=== PATIENT | male | born 1980 | race Asian ===

== ENCOUNTER 2019-09-16 21:24 | Emergency (ER) | payer OTHER ==
--- NOTE | 2019-09-16 22:10 | ED Physician Documentation ---
PD HPI URI - Stated complaint Stated Complaint: COUGH, FEVER - Chief complaint Chief Complaint: Fever - History obtained from History obtained from: Patient - History of Present Illness Timing - onset: Yesterday Timing duration: Days (2) Timing details: Abrupt onset, Still present Associated symptoms: Fever, Chills, Nasal congestion, Dry cough, Dyspnea (mild), Other (having feeling of vertigo with head movement worse today; has had it intermittently for 2-3 weeks, along with some nasal watering.). No: Sore throat, Hemoptysis, NVD Contributing factors: No: Sick contact, Immunocompromised, COPD / asthma Worsened by: Activity Similar symptoms before: Has not had sx before Recently seen: Not recently seen Review of Systems Constitutional: reports: Fever (since yesterday), Chills, Myalgias Ears: reports: Tinnitus/ringing (for few days, seems like both ears.), Other (vertigo with head movement or unusual head angle (looking upward) for few weeks intermittently.). denies: Ear pain, Drainage/discharge Nose: reports: Congestion, Sinus pressure / pain Throat: denies: Sore throat Cardiac: denies: Chest pain / pressure Respiratory: reports: Dyspnea, Cough. denies: Wheezing GI: denies: Abdominal Pain, Nausea, Vomiting, Diarrhea Skin: reports: Rash (2 weeks of persistent rash right wrist.). denies: Lesions Neurologic: reports: Generalized weakness. denies: Near syncope, Altered mental status, Headache PD PAST MEDICAL HISTORY - Past Medical History Past Medical History: No - Past Surgical History Past Surgical History: No - Present Medications Home Medications: Ambulatory Orders Medication Instructions Recorded Confirmed Albuterol Sulfate [Albuterol 2 puffs IH QID #1 hfa.aer.ad 09/16/19 Sulfate Hfa] Benzonatate [Tessalon Perle] 100 mg PO TID PRN #20 capsule 09/16/19 Clotrimazole/Betamethasone Crm 1 applic TOP BID #15 g 09/16/19 [Lotrisone Cream] Meclizine HCl [Motion Sickness 25 mg PO Q6H PRN #25 tablet 09/16/19 Relief] dexAMETHasone [Decadron] 4 mg PO DAILY #5 tablet 09/16/19 - Allergies Allergies/Adverse Reactions: Allergies Allergy/AdvReac Type Severity Reaction Status Date / Time No Known Drug Allergies Allergy Verified 09/16/19 21:38 - Social History Does the pt smoke?: No Smoking Status: Never smoker Does the pt drink ETOH?: No Does the pt have substance abuse?: No - Immunizations Immunizations are current?: Yes - POLST Patient has POLST: No PD ED PE NORMAL - Vitals Vital signs reviewed: Yes - General General: Alert and oriented X 3, No acute distress, Well developed/nourished - HEENT HEENT: PERRL, EOMI (mild nystagmus to the left. ), Ears normal, Moist mucous membranes, Pharynx benign - Neck Neck: Supple, no meningeal sign, No adenopathy - Cardiac Cardiac: RRR, No murmur - Respiratory Respiratory: No respiratory distress, Clear bilaterally - Abdomen Abdomen: Soft, Non tender - Male Male : Deferred - Rectal Rectal: Deferred - Back Back: No CVA TTP - Derm Derm: Normal color, Warm and dry, Other (right volar wrist with 2 cm rounded area of red skin with scaling/raised edges c/w tinea. ) - Extremities Extremities: Normal ROM s pain, No edema, No calf tenderness / cord - Neuro Neuro: Alert and oriented X 3, No motor deficit, Normal speech Results - Vitals Vitals: Vital Signs - 24 hr 09/16/19 09/16/19 09/16/19 21:36 21:40 23:31 Temperature 36.6 C 36.6 C Heart Rate 81 81 68 Respiratory 18 18 18 Rate Blood Pressure 131/94 H 131/94 H O2 Saturation 99 99 09/16/19 23:38 Temperature 36.6 C Heart Rate 66 Respiratory 16 Rate Blood Pressure 130/90 H O2 Saturation 100 Oxygen O2 Source Room air - Rads (name of study) chest xray Radiology: Prelim report reviewed (no acute process), See rad report PD MEDICAL DECISION MAKING - ED course Complexity details: considered differential (main complaint of cough and fever and congestion. But also has had intermittent vertigo for few weeks or more and also 2 weeks of right wrist rash c/w tinea. He does have upper respiratory symptoms so testing for COVID is appropriate.), d/w patient Departure - Departure Disposition: 01 Home, Self Care Clinical Impression: Vertigo, Tinea corporis Upper respiratory infection Qualifiers: URI type: unspecified URI Qualified Code(s): J06.9 - Acute upper respiratory infection, unspecified Condition: Stable Record reviewed to determine appropriate education?: Yes Instructions: ED Upper Resp Infec No Abx Tx Follow-Up: [facility] [Provider Group] [facility] [Provider Group] Prescriptions: Albuterol Sulfate [Albuterol Sulfate Hfa] 2 puffs IH QID #1 hfa.aer.ad Benzonatate [Tessalon Perle] 100 mg PO TID PRN #20 capsule PRN Reason: Cough Clotrimazole/Betamethasone Crm [Lotrisone Cream] 1 applic TOP BID #15 g dexAMETHasone [Decadron] 4 mg PO DAILY #5 tablet Meclizine HCl [Motion Sickness Relief] 25 mg PO Q6H PRN #25 tablet PRN Reason: Vertigo Comments: Your chest x-ray appears normal without any signs of pneumonia at this time. Your COVID test will result tomorrow or at most the day after. Typically we hav e been getting the back in a day. We will call you with the results. This sounds likely to be a viral illness and we can treated with drinking lots of fluids and using Tylenol and/or ibuprofen for fevers and pains and aches. Add albuterol inhaler 2 to 3 puffs 4 times a day for improved breathing. Benzonatate if needed for cough. You can use the meclizine for dizziness. Also take Decadron steroid anti-inflammatory to help with presumed inflammation in the inner ear causing the vertigo. Follow-up with your primary care if not improving well over the next few days. Also follow-up with ENT regarding further evaluation of the vertigo and tinnitus. Forms: Activity restrictions Discharge Date/Time: 09/16/19 23:43
[2019-09-16] MEDS ORDERED: ALBUTEROL 1 PUFF INH STA (22:36)
[2019-09-16] MEDS ORDERED: DEXAMETHASONE 10 MG/ML VIAL PO STA (22:37)
[2019-09-16] MEDS ORDERED: CHERRY SYRUP 10 ML UDC PO ONE (22:37)
[2019-09-16] MEDS ORDERED: MECLIZINE 12.5 MG TABLET PO STA (22:37)
[2019-09-16] MEDS ORDERED: BENZONATATE 100 MG CAPSULE PO STA (22:37)
--- NOTE | 2019-09-16 23:31 | XRAY Report ---
Reason: chest pain Procedure Date: 09/16/2019 Accession Number: [id number] / [id number] Procedure: XR - Chest 1 View X-Ray CPT Code: 47002 Final Report FULL RESULT: EXAM: CHEST RADIOGRAPHY EXAM DATE: 09/16/2019 11:04 PM. CLINICAL HISTORY: Chest pain. COMPARISON: None. TECHNIQUE: 1 view. FINDINGS: Lungs/Pleura: No focal opacities evident. No pleural effusion. No pneumothorax. Mediastinum: Within exam limitations, the cardiomediastinal contour is normal. Other: None. IMPRESSION: Normal single view chest. [facility]
[2019-09-16 23:44] VITALS: BP 130/90
== END 2019-09-16 23:43 | disposition home or self-care (01) ==
LOC: ED 21:24
DX: R42 Dizziness and giddiness (principal); H93.13 Tinnitus, bilateral; B35.4 Tinea corporis; J06.9 Acute upper respiratory infection, unspecified; Z20.828 Contact with and (suspected) exposure to other viral communicable diseases
CPT/HCPCS: 71045; 81599; 94640; 99284; A9270